=== PATIENT | male | born 1980 | race African-American/Black ===

== ENCOUNTER 2024-04-10 22:27 | Emergency (ER) | payer SELFPAY ==
[2024-04-10] MEDS: Ibuprofen 400 MG Tab PO ONE (23:19)
[2024-04-10] MEDS: Acetaminophen 500 MG Tab PO ONE (23:20)
== END 2024-04-11 00:33 | disposition home or self-care (01) ==
LOC: MW.ED 22:27
DX: U07.1 COVID-19 (principal)
CPT/HCPCS: 71046; 87635; 99283; A9270; U0002

== ENCOUNTER 2024-04-12 20:08 | Emergency (ER) | payer SELFPAY ==
[2024-04-12] MEDS: Ibuprofen 400 MG Tab PO ONE (20:24)
[2024-04-12] MEDS: Acetaminophen 500 MG Tab PO ONE (20:25)
== END 2024-04-12 20:34 | disposition home or self-care (01) ==
LOC: MW.ED 20:08
DX: U07.1 COVID-19 (principal); Z75.8 Other problems related to medical facilities and other health care
CPT/HCPCS: 99283; A9270